=== PATIENT | female | born 1985 | race Caucasian/White ===

== ENCOUNTER 2021-03-31 00:25 | Emergency (ER) | payer SELFPAY ==
[~2021-03-31] VITALS: Ht 162.6 cm; Wt 59.0 kg
--- NOTE | 2021-03-31 00:28 | NUR ---
Dr. Steinberg with pt for MSE
[2021-03-31 00:35] VITALS: BP 104/63
--- NOTE | 2021-03-31 00:50 | NUR ---
PT BIB SELF FOR C/C LUQ PAIN THAT RADIATES TO LEFT CHEST. DENIES PAIN UPON PALPATION OF ABDOMEN. DENIES N/V/D, FEVER, CHILLS, SOB. PT REPORTS SHE HAS HAD THIS PAIN FOR "MONTHS." MED HX: DENIES ALLERGIES: NKA
--- NOTE | 2021-03-31 00:55 | NUR ---
PT AMBULATED TO RESTROOM AND BACK TO BED WITH EVEN AND STEADY GAIT. URINE SAMPLE COLLECTED.
[2021-03-31 01:09] LABS: BASOPHILS % (AUTO) 0.1 % (0.0-2.0); EOSINOPHILS % (AUTO) 0.4 % (0.0-4.0); HEMATOCRIT 37.9 % (36-48); HEMOGLOBIN 12.9 g/dL (12.0-16.0); LYMPHOCYTES # (AUTO) 2.2 K/uL (2.5-16.5); LYMPHOCYTES % (AUTO) 30.1 % (20.5-51.1); MEAN CORPUSCULAR HEMOGLOBIN 31 pg (27-31); MEAN CORPUSCULAR HGB CONC 34 g/dL (33-37); MEAN CORPUSCULAR VOLUME 90.8 fL (80-94); MONOCYTES # (AUTO) 0.5 K/uL (0.8-1.0); MONOCYTES % (AUTO) 6.9 % (1.7-9.3); NEUTROPHILS # (AUTO) 4.5 K/uL (1.8-7.7); NEUTROPHILS % (AUTO) 62.5 % (42.2-75.2); PLATELET COUNT (AUTO) 217 K/uL (140-450); RED BLOOD CELL COUNT(AUTO) 4.17 MIL/uL (4.20-5.40); RED CELL DISTRIBUTION WIDTH 12.1 % (11.6-13.7); WHITE BLOOD COUNT (AUTO) 7.2 K/uL (4.8-10.8)
--- NOTE | 2021-03-31 01:37 | NUR ---
XRAY AT BEDSIDE.
[2021-03-31 01:42] LABS: ANION GAP 10.6 (8-16); CARBON DIOXIDE 30.1 mmol/L (21-32); CREATININE 0.9 mg/dL (0.6-1.3); POTASSIUM 3.7 mmol/L (3.5-5.1); TOTAL BILIRUBIN 0.4 mg/dL (0.0-1.0)
[2021-03-31 01:52] LABS: APPEARANCE,URINE CLEAR (CLEAR); BILIRUBIN,URINE NEGATIVE (NEGATIVE); BLOOD, URINE NEGATIVE (NEGATIVE); COLOR,URINE YELLOW (YELLOW); LEUKOCYTE ESTERASE ,URINE NEGATIVE (NEGATIVE); NITRITE, URINE NEGATIVE (NEGATIVE); UGLUCOSE NEGATIVE (NEGATIVE)
--- NOTE | 2021-03-31 02:24 | NUR ---
Patient appears to be resting comfortably in bed. Vital Signs within normal limits. Respirations even and unlabored. NO SIGNS OF DISTRESS OR DISCOMFORT AT THIS TIME. ALL NEEDS MET.
--- NOTE | 2021-03-31 03:15 | NUR ---
Patient appears to be resting comfortably in bed. Vital Signs within normal limits. Respirations even and unlabored. PT DECLINED BLANKET AT THIS TIME. LIGHTS DIMMED FOR COMFORT.
[2021-03-31] MEDS ORDERED: NAPR-1003 PO (04:08)
[2021-03-31] MEDS ORDERED: PANT40PK PO (04:08)
[2021-03-31] MEDS ORDERED: KETOROLAC 30 MG/ML VIAL IM ONE (04:10)
[2021-03-31] MEDS ORDERED: PANTOPRAZOLE 40 MG TABEC PO ONE (04:10)
[2021-03-31 04:15] VITALS: BP 89/54
--- NOTE | 2021-03-31 04:15 | NUR ---
Patient discharged with v/s stable. Written and verbal after care instructions given and explained. Patient alert, oriented and verbalized understanding of instructions. Ambulatory with steady gait. All questions addressed prior to discharge. ID band removed. Patient advised to follow up with PMD. Rx of NAPROXEN AND PROTONIX given. Patient educated on indication of medication including possible reaction and side effects. Opportunity to ask questions provided and answered.
== END 2021-03-31 04:15 | disposition home or self-care (01) ==
LOC: MED 00:25
DX: R10.32 Left lower quadrant pain (principal); R51.9 Headache, unspecified; Z79.899 Other long term (current) drug therapy
CPT/HCPCS: 36415; 71045; 74018; 80053; 81003; 81025; 84484; 85025; 93005; 99285; Q0092

== ENCOUNTER 2021-08-01 23:35 | Emergency (ER) | payer SELFPAY ==
[~2021-08-01] VITALS: Ht 167.6 cm; Wt 59.0 kg
[~2021-08-01 23:35] MED LIST: NAPR-1003 PO; PANT40PK PO
[2021-08-01 23:56] VITALS: BP 103/65
--- NOTE | 2021-08-01 23:56 | NUR ---
PT TO LOBBY.
[2021-08-02 01:40] LABS: BASOPHILS # (AUTO) 0.1 K/uL (0.00-0.22); BASOPHILS % (AUTO) 0.7 % (0.0-2.0); EOSINOPHILS % (AUTO) 0.3 % (0.0-4.0); HEMATOCRIT 36.6 % (36-48); HEMOGLOBIN 12.9 g/dL (12.0-16.0); LYMPHOCYTES # (AUTO) 1.9 K/uL (2.5-16.5); LYMPHOCYTES % (AUTO) 24.6 % (20.5-51.1); MEAN CORPUSCULAR HEMOGLOBIN 31 pg (27-31); MEAN CORPUSCULAR HGB CONC 35 g/dL (33-37); MEAN CORPUSCULAR VOLUME 88.7 fL (80-94); MONOCYTES # (AUTO) 0.4 K/uL (0.8-1.0); MONOCYTES % (AUTO) 5.3 % (1.7-9.3); NEUTROPHILS # (AUTO) 5.2 K/uL (1.8-7.7); NEUTROPHILS % (AUTO) 69.1 % (42.2-75.2); PLATELET COUNT (AUTO) 226 K/uL (140-450); RED BLOOD CELL COUNT(AUTO) 4.13 MIL/uL (4.20-5.40); RED CELL DISTRIBUTION WIDTH 12.2 % (11.6-13.7); WHITE BLOOD COUNT (AUTO) 7.6 K/uL (4.8-10.8)
[2021-08-02 01:44] LABS: APPEARANCE,URINE SL CLOUDY (CLEAR); BILIRUBIN,URINE NEGATIVE (NEGATIVE); BLOOD, URINE NEGATIVE (NEGATIVE); COLOR,URINE RED (YELLOW); LEUKOCYTE ESTERASE ,URINE NEGATIVE (NEGATIVE); NITRITE, URINE NEGATIVE (NEGATIVE); UGLUCOSE NEGATIVE (NEGATIVE)
[2021-08-02 02:32] LABS: ALBUMIN 3.8 g/dL (3.4-5.0); ANION GAP 12.3 (8-16); CARBON DIOXIDE 28.5 mmol/L (21-32); CREATININE 0.8 mg/dL (0.6-1.3); POTASSIUM 3.8 mmol/L (3.5-5.1); TOTAL BILIRUBIN 0.6 mg/dL (0.0-1.0)
[2021-08-02] MEDS ORDERED: KETOROLAC 60 MG/2 ML VIAL IM ONE (03:55)
[2021-08-02] MEDS ORDERED: OMEP40EC24 PO (03:59)
[2021-08-02] MEDS ORDERED: ONDA8TAB87 PO (03:59)
[2021-08-02] MEDS ORDERED: IBUP-2213 PO (03:59)
--- NOTE | 2021-08-02 04:22 | NUR ---
Patient discharged with v/s stable. Written and verbal after care instructions given and explained. Patient alert, oriented and verbalized understanding of instructions. Ambulatory with steady gait. All questions addressed prior to discharge. ID band removed. Patient advised to follow up with PMD. Rx of ZOFRAN, PRILOSEC, AND MOTRIN given. Patient educated on indication of medication including possible reaction and side effects. Opportunity to ask questions provided and answered.
== END 2021-08-02 04:22 | disposition home or self-care (01) ==
LOC: MED 23:35
DX: R10.12 Left upper quadrant pain (principal); Z79.899 Other long term (current) drug therapy; Z98.890 Other specified postprocedural states
CPT/HCPCS: 36415; 74176; 80053; 81003; 81025; 83690; 85025; 96372; 99284; J1885